=== PATIENT | male | born 1995 ===

== ENCOUNTER 2020-09-27 11:52 | Outpatient (CLI) | payer OTHER | END 2020-09-27 12:06 | disposition home or self-care (01) | LOC: RAD 11:52 | PROVIDERS: ATTEND Physical Medicine & Rehabilitation | DX: M54.2 Cervicalgia (principal); M54.5 Low back pain; M54.6 Pain in thoracic spine ==

== ENCOUNTER 2021-10-01 07:53 | Outpatient (CLI) | payer OTHER | END 2021-10-01 08:06 | disposition home or self-care (01) | LOC: RAD 07:53 | PROVIDERS: ATTEND Internal Medicine Rheumatology | DX: M46.1 Sacroiliitis, not elsewhere classified (principal) ==

== ENCOUNTER 2021-11-14 15:21 | Outpatient (CLI) | payer OTHER | END 2021-11-14 15:28 | disposition home or self-care (01) | LOC: RAD 15:21 | PROVIDERS: ATTEND Internal Medicine Rheumatology | DX: M46.1 Sacroiliitis, not elsewhere classified (principal); M06.4 Inflammatory polyarthropathy ==

== ENCOUNTER 2023-01-07 07:38 | Outpatient (CLI) | payer OTHER | END 2023-01-07 07:49 | disposition home or self-care (01) | LOC: RAD 07:38 | PROVIDERS: ATTEND Internal Medicine Rheumatology | DX: M46.1 Sacroiliitis, not elsewhere classified (principal); M45.0 Ankylosing spondylitis of multiple sites in spine ==